=== PATIENT | female | born 2000 | race Caucasian/White ===

== ENCOUNTER 2019-09-27 20:43 | Emergency (ER) | payer BC ==
[2019-09-27] MEDS ORDERED: SINGULAIR PO (21:03)
[2019-09-27] MEDS ORDERED: PROAIR HFA0.09 MG/AC IH (21:04)
[2019-09-27 22:30] VITALS: BP 103/65
== END 2019-09-27 22:30 | disposition home or self-care (01) ==
LOC: ED 20:43
DX: S62.307A Unspecified fracture of fifth metacarpal bone, left hand, initial encounter for closed fracture (principal); W01.0XXA Fall on same level from slipping, tripping and stumbling without subsequent striking against object, initial encounter